=== PATIENT | female | born 1960 | race Two or more races ===

== ENCOUNTER 2025-03-28 21:33 | Emergency (ER) | payer MEDICAID, SELFPAY ==
[2025-03-28 21:34] VITALS: BMI 29.2
[2025-03-28 21:41] VITALS: BP 131/91; PULSE 97; RESP 18; TEMP 36.6; O2SAT 98
--- NOTE | 2025-03-28 21:46 | EKG_ITS ---
[facility] Test Date: 2025-03-28 Pat Name: DENISE OVIEDO Department: Room: - Gender: Female Stamping Operator: : 1960 Requested By: Neftaly Carroll Order Number: [id number] Reading MD: Neftaly Carroll Measurements Intervals Max Rate: 90 P: 44 IN: 148 QRS: 59 QRSD: 81 T: 76 QT: 354 QTc: 435 Interpretive Statements SINUS RHYTHM POSSIBLE LEFT ATRIAL ENLARGEMENT [-0.1mV P-WAVE IN V1/V2] NONSPECIFIC T-WAVE ABNORMALITY No previous ECG available for comparison /store/S0/[id number].pdf
--- NOTE | 2025-03-28 21:46 | XR_ITS ---
Examination: CT cervical spine without contrast 2-D sagittal reconstructions 2-D coronal reconstructions 3-D reconstructions. Exam date and time: March 28, 2025, 10:33 p.m. INDICATIONS: Neck pain radiating to the right shoulder today CTDI:vol (mGy) 14.6 DLP: (mGycm) 268 Technique: Multiple 2 mm axial sections of the cervical spine have been obtained. The coronal and sagittal reconstructions have been obtained. 3-D reconstructions have been obtained. Low dose protocols were performed. One or more of the following dose reduction techniques were used; automated exposure control, adjustment of the mA and/or KV according to patient size, use of iterative reconstruction technique. Findings: Axial sections demonstrate intact base of the skull. C1 exhibit satisfactory relationship to the odontoid. No acute cervical vertebral body fracture seen. Alignment posterior spinous processes satisfactory. Moderate degenerative disc disease C5-C6 C3-C4 advanced left neural foraminal stenosis C4-C5 moderate bilateral neuroforaminal stenosis C5-C6 moderate bilateral neural foraminal stenosis C6-C7 moderate right neural foraminal stenosis Impression: No acute cervical fracture. Degenerative disc disease C5-C6 Significant bilateral neural foraminal stenosis as above As clinically warranted, MRI cervical spine without contrast follow-up would best assess full extent of acquired cervical spinal stenosis
--- NOTE | 2025-03-28 21:46 | XR_ITS ---
Examination: Duplex scan of the upper extremity, unilateral right Date and time of exam: March 28 510 10:10 p.m. INDICATIONS: Right arm swelling and pain today Technique: Duplex scan of the extremity veins using B-mode/grayscale imaging and Doppler spectral analysis and color flow Attention is directed to internal echogenicity, compression and augmentation involving these veins, color flow assessment, spectral analysis Findings: Major deep venous structures in the extremity demonstrate normal course and caliber. There is no evidence of deep vein thrombosis. Normal color flow and spectral analysis Impression: Negative for DVT..
--- NOTE | 2025-03-28 21:46 | XR_ITS ---
Examination: Shoulder, right, 3 views Technique: Shoulder AP internal rotation, AP external rotation, Y view shoulder, 3 views Exam date and time : March 28, 2025 9:54 p.m. INDICATION: Right shoulder pain today FINDINGS: Mild narrowing glenohumeral joint No shoulder fracture or dislocation Old appearing fracture deformity distal clavicle but clinical correlation advised IMPRESSION: Old appearing fracture deformity distal clavicle but clinical correlation advised
--- NOTE | 2025-03-28 21:47 | PD.EDRME ---
Rapid Medical Screening Exam RME Arrival date/time: 03/28/25 21:33 This is a case of 64-year-old female who came into the emergency room due to right shoulder pain sharp in character radiating to the right side of the neck and right arm denies any injury or trauma worsening of the symptoms now with chest pain this patient decided to sought consult here in the emergency room Chief Complaint: Extremity Injury, Upper Time Seen by Provider: 03/28/25 21:38 Vital signs: Vital Signs Temperature 98 F 03/28/25 21:41 Pulse Rate 97 03/28/25 21:41 Respiratory Rate 18 03/28/25 21:41 Blood Pressure 131/91 H 03/28/25 21:41 Pulse Oximetry (%) 98 03/28/25 21:41 Oxygen Delivery Method Room Air 03/28/25 21:41 Exam: Moderate tenderness on the right shoulder right arm and right cervical area no crepitation no deformity ROM is limited due to pain lungs sound is clear equal normal rate regular rhythm Clinical Impression: Shoulder pain chest pain
[2025-03-28 23:25] LABS: Basophils # (Auto) 0.1 Thou/mm3 (0.0-0.2); Basophils % (Auto) 1 % (0-2.5); Eosinophils # (Auto) 0.3 Thou/mm3 (0.0-0.5); Eosinophils % (Auto) 3 % (0-10); Hematocrit 35.7 % (36.0-46.0); Hemoglobin 11.7 g/dL (12.0-16.0); Immature Granulocytes Auto 0.03 Thou/mm3 (0.00-0.00); Lymphocytes # (Auto) 2.4 Thou/mm3 (1.0-4.8); Lymphocytes % (Auto) 24 % (10-50); Mean Corpuscular HGB Conc 32.8 g/dl (31.0-37.0); Mean Corpuscular Hemoglobin 30.2 pg (25.0-35.0); Mean Corpuscular Volume 92 fL (80-100); Monocytes # (Auto) 0.7 Thou/mm3 (0.0-0.8); Monocytes % (Auto) 6 % (0-12); Neutrophils # (Auto) 6.7 Thou/mm3 (1.8-7.7); Neutrophils % (Auto) 66 % (37-80); Nucleated Red Blood Cell # 0.00 Thou/mm3 (0.00-0.00); Nucleated Red Blood Cell % 0 /100 WBC (0); Platelet Count 361 Thou/mm3 (140-440); RDW Standard Deviation 43.1 fL (36.4-46.3); Red Blood Count 3.88 Miln/mm3 (4.00-5.20); White Blood Count 10.1 Thou/mm3 (3.6-11.0)
[2025-03-28 23:45] LABS: Alanine Aminotransferase 13 U/L (10-49); Albumin, Serum 4.6 gm/dL (3.4-4.8); Albumin/Globulin Ratio 1.4 (1.2-2.2); Alkaline Phosphatase 77 U/L (46-116); Anion Gap 10 (7-16); Aspartate Amino Transferase 18 U/L (0-34); BUN/Creatinine Ratio 16 Ratio (12-20); Bilirubin,Total 0.2 mg/dL (0.3-1.2); Blood Urea Nitrogen 11 mg/dL (9-23); Calcium 9.3 mg/dL (8.3-10.6); Calcium (Corrected) 9.3 mg/dL (8.5-10.1); Carbon Dioxide 24.3 mMol/L (20.0-31.0); Chloride 104 mMol/L (98-107); Creatinine (Component) 0.7 mg/dL (0.6-1.3); Estimated Creatinine Clearance 70.8 mL/min (>60); Globulin 3.2 gm/dL (2.3-3.5); Glucose 117 mg/dL (74-106); Osmolality,Calculated 276 (275-295); Potassium 4.2 mMol/L (3.4-5.1); Sodium 138 mMol/L (136-145); Total Protein 7.8 gm/dL (5.7-8.2); Troponin I < 0.002 ng/mL (0.0-0.045); eGFR > 60 See Note
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
[2025-03-29 00:58] VITALS: BP 129/85; PULSE 92; RESP 18; TEMP 37.1; O2SAT 96
[2025-03-29 01:22] LABS: Troponin I < 0.002 ng/mL (0.0-0.045)
[2025-03-29] MEDS: GABAPENTIN 100 MG CAPSULE PO (01:34)
[2025-03-29 01:36] VITALS: RESP 16
== END 2025-03-29 01:37 | disposition home or self-care (01) ==
PROVIDERS: Nurse Practitioner Family; Emergency Provider Emergency Medicine; PCP Family Medicine
DX: M48.02 Spinal stenosis, cervical region (principal); R94.31 Abnormal electrocardiogram [ECG] [EKG]; M25.511 Pain in right shoulder; M79.89 Other specified soft tissue disorders; M79.621 Pain in right upper arm
CPT/HCPCS: 36415; 72125; 73030; 80053; 84484; 85025; 93005; 93971; 99283; A9270

== ENCOUNTER 2025-04-07 11:57 | Emergency (ER) | payer MEDICAID, SELFPAY ==
[2025-04-07 12:37] VITALS: BP 165/92; PULSE 93; RESP 22; TEMP 36.7; O2SAT 98; BMI 29.2
--- NOTE | 2025-04-07 13:02 | XR_ITS ---
Examination: Clavicle 2 views, left Technique: Clavicle AP, angled up AP, 2 views Exam date and time: April 07, 2025, 1306 hours INDICATIONS: Patient fell today with injury to the shoulder, shoulder pain. FINDINGS: No acute clavicle fracture No AC joint separation IMPRESSION: No definite acute fracture
--- NOTE | 2025-04-07 13:02 | XR_ITS ---
Examination: Humerus 2 views left Technique: Humerus, AP lateral 2 views Date and time of exam: April 07, 2025, 1303 hours INDICATIONS: Patient fell today with injury to the arm, left arm pain. FINDINGS: No shoulder fracture or dislocation Shaft of the humerus intact IMPRESSION: No acute fracture
--- NOTE | 2025-04-07 13:03 | PD.EDUPEX ---
Upper Extremity Injury RME/HPI General Chief Complaint: Extremity Injury, Upper Stated Complaint: S/P FALL X2 DAYS AGO L SHOULDER PAIN Time Seen by Provider: 04/07/25 12:08 Arrival date/time: 04/07/25 11:57 64-year-old female patient came in for evaluation regarding left shoulder pain. Patient sustained a ground-level fall about 3 days ago, according to her she fell on her leg she currently on arm sling. Patient denies any head injury no neck pain no back pain no other complaints noted. Patient is ambulatory. No medication was taken prior to ER visit Related Data Previous Rx's ?Medication ?Instructions ?Recorded gabapentin 100 mg capsule 100 mg PO BID 2 weeks #28 caps 03/29/25 cyclobenzaprine 10 mg tablet 10 mg PO TID PRN muscle spasm #20 04/07/25 tabs ibuprofen 600 mg tablet 600 mg PO Q8H PRN pain #30 tabs 04/07/25 Allergies Allergy/AdvReac Type Severity Reaction Status Date / Time sulfamethoxazole Allergy Mild Rash Verified 03/28/25 21:37 trimethoprim Allergy Mild Rash Verified 03/28/25 21:37 Review of Systems Review of Systems Narrative Review of Systems: Review of system reviewed and within normal limits except mentioned in HPI ED Exam Narrative Physical exam: VITAL SIGNS: Reviewed. GENERAL APPEARANCE: Alert and interactive, follows commands, no acute distress, HEAD AND FACE: Non-traumatic. ENT: PERRL, pink conjunctivitis, eyelid no trauma, Mucous membrane moist. NECK: Supple, nontender, no nuchal rigidity. CHEST: No tenderness, no crepitus, no paradoxical movement, no retractions. LUNGS: Clear, well ventilated, symmetric, no rales, no wheezing, no ronchi, no stridor, good breath sounds bilaterally. HEART: Regular rate, regular rhythm, no murmur, no gallops. ABDOMEN: Soft, positive bowel sounds, nondistended, no guarding, nontender, no rebound, no masses, RECTAL: Deferred. GENITAL: Deferred. NEUROLOGICAL: Gross motor function intact sensory function intact, Appropriate for age. MUSCULOSKELETAL: low back nontender, full range of motion. EXTREMITIES: Left shoulder tenderness, no deformity with limitation range of motion. Positive clavicular tenderness with swelling on the left distal neurovascular status intact SKIN: Color pink, dry, no rash, no lacerations, no abrasions, no contusions. LYMPHATICS: Deferred. Course Quality Measures none Orders Category Date Time Status XR clavicle LT Stat Exams 04/07/25 13:02 Completed XR humerus LT MIN 2V Stat Exams 04/07/25 13:02 Completed Ketorolac Inj [Toradol Inj] Med 04/07/25 13:02 Discontinued 30 mg IM X1 ONE Vital Signs Vital signs: Vital Signs Temperature 98.0 F 04/07/25 12:37 Pulse Rate 93 04/07/25 12:37 Respiratory Rate 22 H 04/07/25 12:37 Blood Pressure 165/92 H 04/07/25 12:37 Pulse Oximetry (%) 98 04/07/25 12:37 Oxygen Delivery Method Room Air 04/07/25 12:37 Extremity Injury MDM Narrative MDM Narrative:: 64-year-old female patient came in for evaluation regarding left shoulder pain. Patient sustained a ground-level fall about 3 days ago, according to her she fell on her leg she currently on arm sling. Patient denies any head injury no neck pain no back pain no other complaints noted. Patient is ambulatory. No medication was taken prior to ER visit X-ray of the shoulder came back unremarkable x-ray of the clavicle also came back unremarkable results discussed with the patient. Patient was advised to continue wearing the arm sling, and asked for referral to joint specialist for worsening of pain. Patient stable discharge home. Patient data External records reviewed:: None Clinical information provided by:: patient Social determinants that could affect healthcare access:: none Patient has the following chronic illnesses:: None How is presenting disease/condition affected by chronic disease/condition?: no chronic disease Evaluation data The following diagnostics were reviewed and interpreted by me:: radiology exam(s) Lab and/or radiology exams considered but not ordered:: None Interpretation Summary: See above Medications / Prescriptions Medications or Prescriptions considered but not ordered:: None Medication administrations:: Medication Administration History Discontinued Medications Ketorolac Tromethamine (Ketorolac Inj 30 Mg/Ml Vial) 30 mg IM X1 ONE Stop: 04/07/25 13:03 Toradol Consultations Consultation(s) initiated? (list below): No Diagnosis Upper Extremity Injury Differential Diagnosis: dislocation of shoulder, fracture of humerus and fracture of clavicle Most likely diagnosis given after review of the tests above:: Shoulder pain Admission Indicated Admission indicated?: not indicated Admission Request Was there a request for admission?: No Disposition Plan Disposition Plan: Discharge Discharge Attestation Discharge Attestation: The patient was given an opportunity to ask questions and understood the discharge instructions. Discharge instructions specifically effects, indications for sooner follow up or return to the emergency department, and the expected course of current diagnosis. Patient condition: Stable Discharge Plan Plan Patient Disposition: HOME (Self Care) Discharge Disposition comment: stable Prescriptions/Referrals Prescriptions/Med Rec: New ibuprofen 600 mg tablet 600 mg PO Q8H PRN (Reason: pain) Qty: 30 0RF cyclobenzaprine 10 mg tablet 10 mg PO TID PRN (Reason: muscle spasm) Qty: 20 0RF No Action gabapentin 100 mg capsule 100 mg PO BID 14 Days Qty: 28 0RF Referrals: Marija Green MD [Primary Care Provider] - In 1 week Problem List Clinical Impression: Left shoulder pain, Fall Patient/Caregiver Discharge Instructions Discharge Activity: activity as tolerated Education Materials: Understanding the Pain Response Additional Instructions: Thank you for the opportunity for serving you today. You are stable for discharged . You are advised to: Follow-up with your PCP in 1 to 2 days Return to ED for worsening of symptoms Increase oral fluids Take medication as prescribed Wear your arm sling as needed Your PCP to refer you to a shoulder joint specialist. Print Language: Chinese Stand Alone Forms: Shannon Award Info., Patient Portal Info Letter RORO/RUBY Supervising Physician RORO/RUBY Supervising Physician: MD Estuardo
== END 2025-04-07 15:20 | disposition home or self-care (01) ==
PROVIDERS: Emergency Provider Physician Assistant; PCP Pediatrics Pediatric Critical Care Medicine
DX: S49.92XA Unspecified injury of left shoulder and upper arm, initial encounter (principal); W18.30XA Fall on same level, unspecified, initial encounter
CPT/HCPCS: 73000; 73060; 99282